=== PATIENT | male | born 2005 | race Caucasian/White ===

== ENCOUNTER 2024-02-28 19:34 | Emergency (ER) | payer MEDICAID ==
[2024-02-28] MEDS: Ibuprofen 800 MG Tab PO ONE (20:20)
== END 2024-02-28 20:44 | disposition home or self-care (01) ==
LOC: JD.ED 19:34
DX: K08.89 Other specified disorders of teeth and supporting structures (principal); Z88.0 Allergy status to penicillin
CPT/HCPCS: 99283; A9270